=== PATIENT | female | born 2000 | race Caucasian/White ===

== ENCOUNTER → 2024-02-06 12:41 | Outpatient (BNVA) | payer OTHER, SELFPAY | PROVIDERS: Visit Provider Nurse Practitioner Family | DX: J02.9 Acute pharyngitis, unspecified (principal) | CPT/HCPCS: 87880 ==

== ENCOUNTER 2024-08-31 10:14 | Emergency (ER) | payer BC, SELFPAY ==
[2024-08-31 10:19] VITALS: BP 138/78; PULSE 111; RESP 20; TEMP 37.1; O2SAT 100; BMI 22.4
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
[2024-08-31 11:38] LABS: HCG Qualitative Urine. Negative (Negative)
[2024-08-31] MEDS: iohexol 350 mg/mL 500 mL Btl (per mL) IV ×2 (12:32→13:49)
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
[2024-08-31 13:45] VITALS: BP 118/72; PULSE 96; RESP 16; O2SAT 98
[2024-08-31 13:49] LABS: Hematocrit 39.0 % (36-47); Hemoglobin 12.90 g/dL (11.27-16.99); Mean Corpuscular HGB Conc 33.1 g/dL (30-55); Mean Corpuscular Hemoglobin 28.7 pg (27-33); Mean Corpuscular Volume 86.7 fl (85-98); Nucleated Red Blood Cells % 0 %; Platelet Count 319 10^3/cmm (157-399); Red Blood Count 4.50 10^6/uL (3.85-5.65); White Blood Count 23.09 10^3/uL (3.29-11.43)
[2024-08-31 14:07] LABS: INR 0.98 (0.8-1.2); Prothrombin Time 13.70 SECONDS (12.1-14.9)
[2024-08-31 14:08] LABS: Partial Thromboplastin Time 25.3 SECONDS (23.9-36.7)
[2024-08-31 14:10] LABS: Alanine Aminotransferase 24 U/L (0-33); Albumin Level 4.2 g/dL (3.5-5.2); Alkaline Phosphatase 52 U/L (35-105); Anion Gap 15.7 (5-19); Aspartate Amino Transferase 31 U/L (0-32); Blood Urea Nitrogen 12 mg/dL (6-20); Calcium 9.0 mg/dL (8.5-10.5); Carbon Dioxide 21 mmol/L (22-29); Chloride 107 mmol/L (98-107); Creatinine Clr Calc Pharmacy 144.8139; Globulin 2.6 g/dL (1.3-4.6); Glucose 101 mg/dL (65-115); Osmolality Calculated 290 mOsm/kg (285-295); Potassium 3.7 mmol/L (3.5-5.1); Sodium 140 mmol/L (136-145); Total Protein 6.8 g/dL (6.6-8.7)
[2024-08-31 15:12] VITALS: BP 118/67; PULSE 93; RESP 16; O2SAT 99
[2024-08-31 15:15] VITALS: BP 113/64; PULSE 98; RESP 16; O2SAT 99
== END 2024-08-31 16:14 | disposition short-term general hospital (02) ==
PROVIDERS: Emergency Provider Physician Assistant
DX: D73.5 Infarction of spleen (principal); V89.2XXA Person injured in unspecified motor-vehicle accident, traffic, initial encounter
CPT/HCPCS: 36415; 71260; 74177; 80053; 81025; 85025; 85610; 85730; 99285

== ENCOUNTER → 2024-10-27 12:00 | Outpatient (BNVA) | payer OTHER, BC, SELFPAY | PROVIDERS: Visit Provider Nurse Practitioner Women's Health | DX: N93.9 Abnormal uterine and vaginal bleeding, unspecified (principal) | CPT/HCPCS: 85025 ==